=== PATIENT | male | born 1960 | race Caucasian/White ===

== ENCOUNTER 2017-07-29 11:46 | Inpatient (IN) | payer MEDICARE ==
[2017-07-29] VITALS (21 sets, daily range): BP systolic 113–201; BP diastolic 81–115; PULSE 69–113; RESP 16–22; O2SAT 88–100
[~2017-07-29] VITALS: Ht 167.6 cm; Wt 69.0 kg
--- NOTE | 2017-07-29 12:02 | ED.REPORT ---
HPI-Chest Pain 40 and Over Date of Service Jul 29, 2017 ED Provider: Giovani Goodwin MD Patient is a 57 year old male who presents to the ED via EMS complaining of left sided chest pain onset this morning. Associated symptoms include nausea, diaphoresis, left shoulder pain and neck pain. He denies shortness of breath or recent hematemesis. The patient reports that last night he was having neck pain that continued into the morning. He then started experiencing what he thought was heart burn but as the day progressed it continued to increase in pain. Patient rates the pain as an 8/10. Per EMS, the patient was given nitro en route , which did not improve his pain and was also given ASA. He reports that he had a cold two weeks ago and last week had a productive cough. The patient reports that he had a similar episode of pain when he was having episodes of hematemesis a month ago, which he states was related to a hiatal hernia. Nursing Notes Stated Complaint: CHEST PAIN Chief Complaint: Chest Pain Nursing Notes Reviewed: Yes Allergies: Coded Allergies: hydrocodone (Verified Allergy, Intermediate, 07/29/17) hot flashes, feels funny per h&p Scheduled Omeprazole Magnesium (Prilosec Otc) 20 Mg Tablet.dr 20 MG PO DAILY General Time Seen by MD: 11:50 Chief Complaint Chest pain Hx Obtained From: Patient Arrived By: Ambulance Sudden in Onset?: Yes Onset Occurred: 1 - 4 hours ago Symptom Duration: Since onset Location: : Chest left Quality: Painful Radiation: : Neck: Shoulder left Severity: Current: Moderate Similar Sx Previous: Yes Past Medical History Past Medical History none reported Smoking History Never Smoker Social History Drug Use: THC Ambulatory Status Independent Review of Systems Constitutional: Denies: Chills, Fever Respiratory: Denies: Shortness of breath Cardiovascular: Reports: Chest pain GI: Reports: Nausea, Denies: Hematemesis Musculoskeletal: Reports: Extremity pain, Neck pain Skin: Reports Diaphoresis, Denies Itching, Denies Rash Complete sys rev & neg: except as marked. Physical Exam Initial Vital Signs Vital Signs (First) Date Time Temp Pulse Resp B/P Pulse Ox O2 Delivery O2 Flow Rate FiO2 07/29/17 11:54 36.3 113 20 201/115 99 Room Air Initial VS: Reviewed General/Constitutional: Awake, Alert Respiratory / Chest: Atraumatic, Breath sounds NL, Breath sounds = bilat, No respiratory distress Cardiovascular: Heart rate NL, Regular rhythm, Heart sounds NL Abdomen: Atraumatic, Soft, Non-tender Neck: Atraumatic, Supple, No midline vertebral tend Lower Extremity / Pelvis / MS: Atraumatic, No edema Skin: Atraumatic, Color NL, No rash, Warm, Dry Neurologic: Oriented X3, Speech NL Head / Eyes: Atraumatic, Normocephalic, PERRL, EOMI Interpretation & Diagnostics Lab Results Interpretation Result Diagram: 07/29/17 1146 07/29/17 1146 Test 07/29/17 11:46 White Blood Count 16.3th/mm3 (3.8-10.1) Red Blood Count 5.89mil/mm3 (4.40-5.80) Hemoglobin 16.2g/dL (13.8-17.2) Hematocrit 46.8% (41.0-50.0) Mean Corpuscular Volume 79.5fL (81-100) Mean Corpuscular Hemoglobin 27.5pg (27.0-35.0) Mean Corpuscular Hemoglobin Concent 34.6% (32.0-37.0) Red Cell Distribution Width 14.0% (12.3-15.4) Platelet Count 452bil/L (150-400) Neutrophils (%) (Auto) 86.7% (40-74) Lymphocytes (%) (Auto) 9.2% (14-46) Monocytes (%) (Auto) 3.7% (4-12) Eosinophils (%) (Auto) 0.1% (0-5) Basophils (%) (Auto) 0.1% (0-3) Prothrombin Time 10.7sec (8.1-12.5) Prothromb Time International Ratio 1.00ratio D-Dimer < 0.5mg/L FEU (<0.50) Sodium Level 140mEq/L (134-144) Potassium Level 3.5mEq/L (3.5-5.2) Chloride Level 98mEq/L (97-108) Carbon Dioxide Level 21mmol/L (18-29) Blood Urea Nitrogen 15mg/dL (6-24) Creatinine 1.02mg/dL (0.76-1.27) Estimat Glomerular Filtration Rate 80mL/min (>59) Glucose Level 126mg/dL (60-99) Calcium Level 10.1mg/dL (8.5-10.1) Magnesium Level 1.8mg/dL (1.6-2.6) Total Bilirubin 0.7mg/dL (0.0-1.2) Aspartate Amino Transf (AST/SGOT) 30U/L (0-50) Alanine Aminotransferase (ALT/SGPT) 20U/L (0-44) Alkaline Phosphatase 106U/L (25-150) Troponin T 0.120ug/L (0.0-0.011) Pro-B-Type Natriuretic Peptide 50.31pg/mL (0-210) Total Protein 8.0g/dL (6.4-8.4) Albumin 4.5g/dL (3.4-5.0) ECG Interpretation ECG Interpretation: sinus tachycardia, rate 106 ST depression in V2-V4 RBBB questionable elevation in leads 2 and 3, reviewing with cardiology Time: 11:52 Interpreted by: ED physician X-Ray Chest Interpretation Chest Xray Interpretation: IMPRESSION: No acute cardiopulmonary findings. Dictated by: Laurel Kat M.D. on 07/29/2017 at 12:12 Approved by: Laurel Kat M.D. on 07/29/2017 at 12:12 Interpretation / Wet Read by: Interpret - Radiologist CT Abd / Pelvis Interpretation IMPRESSION: No evidence of aortic dissection. Suboptimal opacification of the pulmonary arteries although no gross central filling defect to suggest pulmonary muscle. 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 Recommend clinical correlation as this finding is technically age-indeterminate. If needed, followup with contrast enhanced pelvis CT could be performed. Large hiatal hernia. Multiple areas of enhancement involving the left and right lobes the liver, which are indeterminate. Hepatic hemangiomas are in the differential although technically nonspecific. As clinically warranted, recommend continued surveillance with contrast enhanced CT or ultrasound to exclude early malignancy/metastatic disease. Dictated by: Juanito Avila M.D. on 07/29/2017 at 11:56 Approved by: Juanito Avila M.D. on 07/29/2017 at 12:10 Interpretation / Wet Read by: Interpret - Radiologist Re-Eval/Medical Decision Med Decision/Clinical Course 57-year-old male history of smoking presenting with left-sided chest pain since this morning. EKG initially showed ST depressions in V2 through V4 with questionable elevations in 2 and 3. I reviewed with the on-call naval designer Dr. Staley emergently who reviewed the EKG and thought not STEMI. He requested I consult Dr. Yoon who reviewed the EKG and thought a STEMI. Code STEMI called. Heparin given in addition to aspirin and Plavix. Patient was admitted to the label operator emergently. Time of Eval: 12:51 Re-Evaluation/Progress Note: Discussed results and plan for admit. Patient understands and agrees to plan. All questions were addressed. Consultation #1: Referral / Consult Name: Ginny Redd MD Consulted With: Cardiology Call Returned at: 11:54 Note: Consult with Dr. Belle, who does not think that the EKG looks like a STEMI Consultation #2: Referral / Consult Name: Colt Yoon MD Consulted With: Cardiology Call Returned at: 12:55 Agricultural Systems Specialist: Will see patient, Agrees with eval, Agrees with plan Consultation #3: Referral / Consult Name: Colt Yoon MD Consulted With: Cardiology Call Returned at: 13:07 Agricultural Systems Specialist: Requested label operator Note: Reviewed EKG with Dr. Yoon, who states it is a STEMI and requested emergent label operator Counseled Regarding: Diagnosis, Lab results, Need for admission Discharge & Departure Primary Impression: STEMI (ST elevation myocardial infarction) Involved coronary artery: unspecified coronary artery Qualified Code: I21.3 - ST elevation (STEMI) myocardial infarction of unspecified site Disposition: ADMITTED TO HOSPITAL Discharge Condition All VS Reviewed: Yes Condition: Stable Referrals: NOPCP (PCP) Crit Care Except Billable Proc Time Spent: 30-74 minutes (42) Services Performed: Patient management by me, Time spent at bedside, Reviewing test results, Reviewing imaging, Discussing patient care, Documentation in record Scribe Attestation Portions of this note were transcribed by Angela Llanos. I, Dr. Goodwin personally performed the history, physical exam and medical decision-making; I reviewed and confirmed the accuracy of the information in the transcribed note. Signed by: Maile Lafleur, 07/29/17. Giovani Goodwin MD Jul 29, 2017 12:02 Francia Llanos Jul 29, 2017 12:13
[2017-07-29 12:03] LABS: BASOPHILS % (AUTO) 0.1 % (0-3); EOSINOPHILS % (AUTO) 0.1 % (0-5); MONOCYTES % (AUTO) 3.7 % (4-12); Mean Corpuscular Hemoglobin 27.5 pg (27.0-35.0); Mean Corpuscular Volume 79.5 fL (81-100); NEUTROPHILS % (AUTO) 86.7 % (40-74); Platelet Count 452 bil/L (150-400)
[2017-07-29] MEDS: MeTOProlol 1 mg/mL 5 mL Inj IVPUSH PRN ×4 (12:12→12:49)
--- NOTE | 2017-07-29 12:14 | DRSVH ---
PROCEDURE: X-RAY CHEST ONE VIEW, PORTABLE ([id number]) INDICATIONS: CHEST PAIN TECHNIQUE: One view of the chest was acquired. COMPARISON: None. FINDINGS: Surgical changes and devices: None. Lungs and pleura: No pleural effusions or pneumothorax. Lungs are clear. Mediastinum: Mediastinal contours appear normal. Heart size is normal. Bones and chest wall: No suspicious bony lesions. Overlying soft tissues appear unremarkable. IMPRESSION: No acute cardiopulmonary findings. Dictated by: Laurel Kat M.D. on 07/29/2017 at 12:12 Approved by: Laurel Kat M.D. on 07/29/2017 at 12:12
[2017-07-29] MEDS ORDERED: Ondansetron 2 mg/mL 2 mL Inj ONE (12:15)
[2017-07-29] MEDS ORDERED: Ondansetron 2 mg/mL 2 mL Inj IVPUSH ONE (12:25)
[2017-07-29] MEDS ORDERED: MetoCLOpramide 5 mg/mL 2 mL Inj IVPUSH ONE (12:25)
[2017-07-29 12:43] LABS: Magnesium 1.8 mg/dL (1.6-2.6)
[2017-07-29] MEDS ORDERED: LidocaineVisc 2%:Antacid 1:1 10 mL Syringe PO ONE (12:50)
[2017-07-29 12:55] LABS: TROPONIN T 0.12 ug/L (0.0-0.011)
[2017-07-29] MEDS ORDERED: Heparin 5,000 Unit/mL Inj IVPUSH ONE (13:10)
[2017-07-29 13:12] LABS: D-Dimer < 0.5 mg/L FEU (<0.50)
--- NOTE | 2017-07-29 13:12 | DRSVH ---
PROCEDURE: CT ANG CHEST/ABD W/WO CONTRAST ([id number]) INDICATIONS: r/o PE/dissection TECHNIQUE: Precontrast 5 mm thick sections acquired from the lung apices to the iliac crests. After the adminis tration of intravenous contrast, 3 mm thick sections again acquired from the lung apices to the iliac crests. 3-dimensional maximum intensity projection (MIP) oblique sagittal and coronal reformats wer e then acquired, and/or 3-dimensional volume rendering reformats. For radiation dose reduction, the following was used: automated exposure control. COMPARISON: None. FINDINGS: Image quality: Excellent. AORTA: No evidence of aortic aneurysm or dissection. There are scattered atheromatous calcifications and mild intraluminal thrombus. In the left common iliac artery on image 153 series 5 there is possi ble early penetrating atherosclerotic ulcer although technically age-indeterminate. No periaortic hem orrhage. CHEST: Lungs and pleura: No acute airspace opacities. No pleural effusions or pneumothorax. Central and p eripheral airways are patent and normal in caliber. Mediastinum: Heart size is normal. No pericardial effusion. No mediastinal or hilar adenopathy by size criteria. Central pulmonary arteries are normal in size. Esophagus is normal in caliber. Large hiatal hernia. Bones and chest wall: No axillary adenopathy by size criteria. Thyroid gland contains nonspecific n odule within the left lobe. No suspicious bony lesions. No vertebral body compression fractures. ABDOMEN: Vasculature: Celiac trunk and mesenteric arteries are patent. Renal arteries are also patent. Solid organs: There is a presumed hepatic hemangioma, image 114 series 5 with peripheral nodular enha ncement. Additional nonspecific 5 mm focus of enhancement seen on image 89 series 5 in the left lobe of the liver, too small to characterize definitively. Additional ill-defined enhancement present in t he inferior liver tip image 126 series 5. and spleen are normal in size. Gallbladder unremarkable. Biliary system is non dilated. Pancreas enhances normally. No adrenal nodules. Both kidneys are no rmal in size and enhancement, without hydronephrosis. Peritoneum and bowel: No free fluid or air. Bowel loops are normal in caliber and wall thickness. N ormal appendix Nodes and vessels: No retroperitoneal or mesenteric adenopathy by size criteria. Inferior vena cava is normal in morphology. Bones: No suspicious bony lesions. No vertebral body compression fractures. Miscellaneous: No ventral hernias. IMPRESSION: No evidence of aortic dissection. Suboptimal opacification of the pulmonary arteries although no gross central filling defect to sugges t pulmonary muscle. 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 Recommend clinical co rrelation as this finding is technically age-indeterminate. If needed, followup with contrast enhance d pelvis CT could be performed. Large hiatal hernia. Multiple areas of enhancement involving the left and right lobes the liver, which are indeterminate. Hepatic hemangiomas are in the differential although technically nonspecific. As clinically warranted , recommend continued surveillance with contrast enhanced CT or ultrasound to exclude early malignanc y/metastatic disease. Dictated by: Juanito Avila M.D. on 07/29/2017 at 11:56 Approved by: Juanito Avila M.D. on 07/29/2017 at 12:10
[2017-07-29] MEDS ORDERED: Heparin 1,000 Unit/mL 10 mL Inj ONE (13:13)
[2017-07-29] MEDS ORDERED: Heparin 1,000 Units/500 mL NS Premix IV ONE (13:13)
[2017-07-29] MEDS ORDERED: Heparin 25,000 Unit/500 mL 0.45% NS Premix IV ONE (13:13)
[2017-07-29] MEDS ORDERED: Nitroglycerin 50,000 mcg/250 mL D5W Premix IV ONE (13:13)
[2017-07-29] MEDS ORDERED: Dextrose 5% 250 ML IV ONE (13:13)
[2017-07-29] MEDS ORDERED: NitroPRUSSIDE 25,000 mCg/mL 2 mL Inj IV ONE (13:14)
[2017-07-29] MEDS ORDERED: Heparin 10,000 Unit/1,000 mL NS Premix IV ONE (13:14)
[2017-07-29] MEDS ORDERED: 0.9% Sodium Chloride 1,000 ML ONE (13:14)
[2017-07-29] MEDS ORDERED: Heparin 5,000 Unit/mL Inj SUBQ ONE (13:25)
[2017-07-29] MEDS ORDERED: fentaNYL-PF 50 mCg/mL 2 mL Inj ONE ×2 (13:41→14:04)
[2017-07-29] MEDS ORDERED: Atropine 1 mg/10 mL (Code) Syringe ONE (13:57)
[2017-07-29] MEDS ORDERED: OMEP20TA24 PO (15:20)
[2017-07-29] MEDS ORDERED: Ondansetron 2 mg/mL 2 mL Inj IVPUSH PRN (16:30)
[2017-07-29] MEDS ORDERED: Polyethylene Glycol (PEG) 17 Gm Powder PO PRN (16:30)
--- NOTE | 2017-07-29 17:02 | PCM.HPMED ---
Subjective Date of Service Jul 29, 2017 Primary Provider: Admitting Physician: Primary Care Physician: Bogdan Attending Physician: Colt Yoon MD Admit Status: From the Emergency Department Chief Complaint: chest pain History of Present Illness: Patient is a 57 yr old male with past medical history significant for GERD and hiatal hernia who presents to the ED and planning of left-sided chest pain that radiated to his left shoulder. He states that the pain awoke him from sleep around 5 AM. He described it as a chest tightness, as if someone was sitting on top of his chest. He notes that he was diaphoretic and nauseated. However, he thought that the chest tightness was just associated with his acid reflux or perhaps his neck pain. As a result, he went to the chiropractor, who did some manipulation of his cervical spine. After the chiropractic treatment, the chest pain was not relieved and only progressively got worse and he felt like passing out and was excessively sweaty. Eventually, he called EMS who gave him nitro and ASA en route to the ED, with no relief. Of note, patient mentions that he first experienced symptoms of chest tightness about 1 week ago but the episodes resolve intermittently. He states that he started having a bad "cold "about 2 weeks ago with associated symptoms of cough and congestion. In addition, going through [facility], patient recalls having hematemesis last winter after having 1 beer during a barbecue. He says that he vomited all day after drinking beer and presented to the ED at [facility]. He underwent an EGD at that time and was told that he had a hiatal hernia as well as Cara-Ch tears. He denies any episodes of hematemesis since then. He does not follow-up with GI. In the ED, Vitals signs: Temp 36.3, HR 113, RR 20, BP 201/115, 99% RA. Troponin 0.12. WBC 16.3. CXR was negative. CT Abd/pelvis showed no evidence of Aortic Dissection. EKG was reviewed by Cardiology, Dr. Yoon who states that patient had evidence of STEMI and requested emergent lab analyst. Review of Systems: The comprehensive review of systems was conducted with the patient and found to be negative except as above in the history of present illness. Allergies Coded Allergies: hydrocodone (Verified Allergy, Intermediate, 07/29/17) hot flashes, feels funny per h&p Home Medications Prilosec 20 mg PMH Gastroesophageal Reflux Disease Work related cervical spine injuries Surgical History hemorrhoid surgery, multiple knee surgeries Family History Mother with history of DVT and coronary artery disease Father with history of lung cancer and hypertension Social History Occupation: former worker in logging Hx Alcohol Use: No Hx Substance Use: Yes (Marijuana ) Hx Tobacco Use: No Smoking Status: Never Smoker Exam Vital Signs Vital Sign - Last Date Time Temp Pulse Resp B/P Pulse Ox O2 Delivery O2 Flow Rate FiO2 07/29/17 16:15 16 113/81 100 Nasal Cannula 3.00 07/29/17 14:58 86 07/29/17 13:15 36.9 Exam General: Patient is lying comfortably on bed, AAOX3, not in acute distress, cooperative and pleasant. HEENT: head normocephalic and atraumatic, PERRLA, EOMI, no scleral icterus, noninjected conjunctiva Neck: neck supple, non-tender, no lymphadenopathy, trachea midline, no JVD CV: regular rate and rhythm, s1 and s2 heard, no murmur, radial pulses and pedal pulses 2+ and equal bilaterally, no rubs or gallops, no edema Lungs: Clear to auscultation bilaterally, no wheezes, rales or rhonchi, no increased work of breathing Abdomen: normoactive bowel sounds on 4Q, soft, non-distended, non-tender to palpation, no organomegally, Skin: warm and dry, right groin angiogram site, no evidence of ecchymoses, minimal bleeding with bandage Musculoskeletal: 5/5 UE and LE strength bilaterally, full ROM bilaterally Neuro: Grossly neurologically intact, cranial nerves II through XII intact, no dyskinesia, dysmetria, or dysdiadochokinesia noted, sensation intact in extremities Psych: Normal mood and affect Lab and Diagnostics Labs Laboratory Tests Test 07/29/17 11:46 White Blood Count 16.3th/mm3 (3.8-10.1) Red Blood Count 5.89mil/mm3 (4.40-5.80) Hemoglobin 16.2g/dL (13.8-17.2) Hematocrit 46.8% (41.0-50.0) Mean Corpuscular Volume 79.5fL (81-100) Mean Corpuscular Hemoglobin 27.5pg (27.0-35.0) Mean Corpuscular Hemoglobin Concent 34.6% (32.0-37.0) Red Cell Distribution Width 14.0% (12.3-15.4) Platelet Count 452bil/L (150-400) Neutrophils (%) (Auto) 86.7% (40-74) Lymphocytes (%) (Auto) 9.2% (14-46) Monocytes (%) (Auto) 3.7% (4-12) Eosinophils (%) (Auto) 0.1% (0-5) Basophils (%) (Auto) 0.1% (0-3) Prothrombin Time 10.7sec (8.1-12.5) Prothromb Time International Ratio 1.00ratio D-Dimer < 0.5mg/L FEU (<0.50) Sodium Level 140mEq/L (134-144) Potassium Level 3.5mEq/L (3.5-5.2) Chloride Level 98mEq/L (97-108) Carbon Dioxide Level 21mmol/L (18-29) Blood Urea Nitrogen 15mg/dL (6-24) Creatinine 1.02mg/dL (0.76-1.27) Estimat Glomerular Filtration Rate 80mL/min (>59) Glucose Level 126mg/dL (60-99) Calcium Level 10.1mg/dL (8.5-10.1) Magnesium Level 1.8mg/dL (1.6-2.6) Total Bilirubin 0.7mg/dL (0.0-1.2) Aspartate Amino Transf (AST/SGOT) 30U/L (0-50) Alanine Aminotransferase (ALT/SGPT) 20U/L (0-44) Alkaline Phosphatase 106U/L (25-150) Troponin T 0.120ug/L (0.0-0.011) Pro-B-Type Natriuretic Peptide 50.31pg/mL (0-210) Total Protein 8.0g/dL (6.4-8.4) Albumin 4.5g/dL (3.4-5.0) Result Diagram: 07/29/17 1146 07/29/17 1146 X-Rays, CTs and MRIs PROCEDURE: X-RAY CHEST ONE VIEW, PORTABLE ([id number]) IMPRESSION: No acute cardiopulmonary findings. Dictated by: Laurel Kat M.D. on 07/29/2017 at 12:12 CT CHEST AND ABDOMEN IMPRESSION: No evidence of aortic dissection. Suboptimal opacification of the pulmonary arteries although no gross central filling defect to suggest pulmonary muscle. 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 Recommend clinical correlation as this finding is technically age- indeterminate. If needed, followup with contrast enhanced pelvis CT could be performed. Large hiatal hernia. Multiple areas of enhancement involving the left and right lobes the liver, which are indeterminate. Hepatic hemangiomas are in the differential although technically nonspecific. As clinically warranted, recommend continued surveillance with contrast enhanced CT or ultrasound to exclude early malignancy /metastatic disease. Dictated by: Juanito Avila M.D. on 07/29/2017 at 11:56 12-lead ECG ECG Interpretation: sinus tachycardia, rate 106 ST depression in V2-V4 RBBB questionable elevation in leads 2 and 3, reviewing with cardiology Time: 11:52 Interpreted by: ED physician Assessment & Plan Patient is a 57 yr old male with past medical history significant for GERD and hiatal hernia who presents to the ED and planning of left-sided chest pain that radiated to his left shoulder. In the ED, BP 201/115, Troponin was 0.12 and EKG was reviewed by Cardiology, Dr. Yoon who states that patient had evidence of STEMI and requested emergent lab analyst. ST segment elevation myocardial infarction, present on admission -Patient presented with left sided chest pain. Initial troponin 0.12. -EKG in the ED showed sinus tachycardia, rate 106, ST depression in V2-V4, RBBB and questionable elevation in leads 2 and 3, which was reviewed with cardiology who agreed that it was ST segment elevation -Cardiology, Dr. Yoon was consulted.We appreciate his input -Patient underwent cardiac catheterization -Angioplasty on 2 lesions of the LAD and PCI stent placement in RCA -Per recommendations of cardiology, will start patient on metoprolol 50 mg bid, Lipitor 40 mg daily, Prilosec 40 mg daily and Altace 2.5 mg daily -Tomorrow, will start aspirin 81 mg and Plavix 75 mg daily - ECHO in the am -Follow-up with Cardiology in 1-2 weeks -Suggest Outpatient Cardiac Rehab Leukocytosis, present on admission, under investigation -WBC 16.3, afebrile -Unlikely to be infectious in etiology. 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 As clinically warranted, recommend continued surveillance with contrast enhanced CT or ultrasound to exclude early malignancy /metastatic disease. -Follow-up as outpatient Patient Status: Patient is admitted under inpatient status expected length of stay greater than 2 midnights due to severity of presenting symptoms, risk of adverse events, and complexity of treatment plan. Code Status: Full Code Pain Evaluation: Adequate Pain Control GI Prophylaxis: Proton Pump Inhibitor VTE Prophylaxis: Other (received heparin today ) VTE Mechanical Devices: Intermittant Pneumatic CD Resuscitation Status: CPR: Attempt Resuscitation Attending Statement The patient was seen and examined together with Dr. Parmar on 07/29/2017 and I agree with the history, exam and plan as outlined in the note above. . Kathryn Parmar DO Jul 29, 2017 17:02 Jonathan Lake MD Jul 30, 2017 18:07
[2017-07-29] MEDS: Alum-Mag Hydrox-Simeth 30 mL Suspension PO PRN ×2 (17:29→23:23)
--- NOTE | 2017-07-29 17:32 | NUR ---
Post Cardiac Intervention Recovery in [facility] post angioplasty/ stent without complications. Patient transferred to 2003 after report given to Panda Tinajero RN. Wallet taken to safe, clothing in patient closet and cell phone at the bedside.
[2017-07-29] MEDS ORDERED: Atropine 1 mg/10 mL (Code) Syringe IVPUSH PRN (17:35)
[2017-07-29] MEDS ORDERED: 0.9% Sodium Chloride 250 ML BOLUS IV PRN (17:35)
[2017-07-29] MEDS ORDERED: 0.9% Sodium Chloride 400 ML (4 HRS) IV ONE (17:35)
[2017-07-29] MEDS: Pantoprazole 40 mg ER24 Tablet PO SCH (18:00)
[2017-07-29] MEDS: Ondansetron 2 mg/mL 2 mL Inj IVPUSH PRN ×2 (18:03→22:40)
--- NOTE | 2017-07-29 18:28 | NUR ---
Arrived 1649 - Received report from Antonia Ferraro RN in [facility]. 171 - He arrived from [facility] to [facility] 2003 after getting two Angioplasties to the LAD and a cardiac stent to the RCA. His right groin site was clean, dry, and intact with a small amount of blood on the dressing. No hematoma noted. Right pedal pulse present. Complained of heart burn pain 6/10 in his chest area. Gave him Maalox which helped some. Also, gave him Protonix and Zofran for nausea. 183 - Appears to be sleeping in bed right now. No complaints. Care continues.
[2017-07-30] VITALS (8 sets, daily range): BP systolic 93–135; BP diastolic 51–88; PULSE 64–89; RESP 16–20; O2SAT 97–98
[2017-07-30 03:17] LABS: BASOPHILS % (AUTO) 0.1 % (0-3); EOSINOPHILS % (AUTO) 0.1 % (0-5); MONOCYTES % (AUTO) 8.3 % (4-12); Mean Corpuscular Volume 80.5 fL (81-100); NEUTROPHILS % (AUTO) 76.6 % (40-74); Platelet Count 363 bil/L (150-400)
--- NOTE | 2017-07-30 04:05 | NUR ---
Nursing, NOC shift Right groin site shows no bruising, no hematoma, dressing with dry scant blood. Patient denies pain/discomfort, declined offer of ice pack. Sitting up in bed eating fruit from dinner tray at begin of shift, then had 100cc watery emesis with remnants of fruit. No mucus or blood noted in emesis. PRN Zofran and Maalox given at HS. Patient states "I feel alot better after I threw up." Tolerated ambulating hallway w/ steady gait. Slept off and on thru the NOC. Tele SR 88. CTM for changes.
--- NOTE | 2017-07-30 07:03 | DI95 ---
[address] [address] INTERVENTIONAL CARDIAC CATHETERIZATION PATIENT: SHAE BENITEZ : 1960 MR#: [id number] ADMIT: 07/29/2017 JOB ID: [id number] PROCEDURE: 1. Selective right and left coronary angiography. 2. Percutaneous intervention on the right coronary artery. 3. Plain old balloon angioplasty of the left anterior descending. INDICATION: Acute posterior myocardial infarction. HISTORICAL DETAILS: This patient was brought in from the ER to the clinical laboratory scientist. He had presented with chest pain. There was suspicion of an acute PA. Apparently there was some question about it, and after talking to other physicians, I was subsequently paged and his EKG to me seemed consistent with an acute inferoposterior PA the patient was brought to the clinical laboratory scientist. Hence the delay in his door to balloon time. ANGIOGRAPHIC FINDINGS: 1. Right coronary artery is totally occluded in its mid segment, prior to a large RV branch. RCA has about a 50% lesion in its proximal part as well 2. Left main has mild proximal ectasia. No critical disease. 3. Left anterior descending has proximal ectasia that extends into the ostium of the circumflex as well. In its proximal segment at the takeoff of the first major septal branch there is an 80% lesion. Further down in the mid LAD there is another 70% lesion. 4. Circumflex is nondominant. It is free of any critical stenosis. Proximal ectasia is noted. INTERVENTIONAL REPORT: We then proceeded ahead with an intervention on his RCA. This was balloon angioplastied and then stented with a 3.0 x 23 mm Vision bare metal stent. A bare metal stent was used because of patient's history of severe reflux and GI symptoms and hematemesis about a month ago. We then turned our attention to the LAD given a tight lesion. We balloon angioplastied the proximal as well as the mid LAD. Stenting was deliberately not performed. I would like him to have a GI consultation. If the patient is cleared by GI, I would rather place a drug coated stent in the LAD. Left heart catheterization revealed LVEDP of 20. There was no gradient upon pullback and the LV gram showed no significant mitral regurgitation. LV function was overall preserved barring the basal inferior segment which is moderately hypokinetic. Visually estimated EF is about 55%. In summary, successful placement of a bare metal stent to the RCA. Balloon angioplasty of the LAD, he will be brought back at a subsequent date for placement of a stent to the LAD. ALYSE
[2017-07-30] MEDS: Pantoprazole 40 mg ER24 Tablet PO SCH (07:26)
[2017-07-30] MEDS: Sodium Chloride LOK Flush 10 mL Syringe IVFLUSH PRN ×2 (08:15→15:54)
--- NOTE | 2017-07-30 08:34 | CONS ---
[address] [address] CONSULTATION REPORT PATIENT: SHAE BENTIEZ : 1960 MR#: [id number] ADMIT: 07/29/2017 JOB ID: [id number] DATE OF SERVICE: 07/30/2017 CHIEF COMPLAINT: Chest discomfort. HISTORY OF PRESENT ILLNESS: This gentleman is a poor historian. Apparently, the patient had chest discomfort at around 5 o'clock this morning. He has been having some issues with his neck for which he sees a chiropractor. He decided this morning to see a chiropractor and then subsequently ended up in the emergency department. He has been having off and on chest discomfort since morning. The chest discomfort also made him nauseous and he broke out into a sweat. At the time of interview, the patient was still having mild chest discomfort. He finds it difficult to describe the chest discomfort. He states this is the first time he has ever had this type of discomfort. As mentioned, it woke him up from sleep. He denies any orthopnea or PND. His physical capacity is limited because of neck and back surgeries. He is on disability because of those injuries. He used to be a online merchandiser. PAST MEDICAL HISTORY: Significant mainly for hiatal hernia and GERD. MEDICATIONS AT HOME: Prilosec. ALLERGIES: HYDROCODONE. REVIEW OF SYSTEMS: Comprehensive review of system was done. Pertinent negatives are no strokes, no upcoming surgeries. No bleeding. He has history of hemorrhoids and had surgery about a year ago. He also had hematemesis about a month ago. He states he had had a big meal and had a bottle of beer. He normally does not drink. Following that, he vomited, and he was also retching and had scant amount of blood. PERSONAL HISTORY: Smokes marijuana occasionally. Drinks alcohol occasionally. FAMILY HISTORY: His father had coronary artery disease at a young age. PHYSICAL EXAMINATION: Mildly distressed, middle-aged man. Pulse 80, blood pressure 130/70. Neck is supple. No JVD. Chest: Clear. Heart sounds S1, S2, regular. No murmurs, no gallops. Distal pulses were palpable. MANAGEMENT SUPERVISOR: Alert and oriented. DIAGNOSTIC STUDIES: EKG consistent with an acute inferoposterior ND. ASSESSMENT AND PLAN: This gentleman presented with an acute inferoposterior myocardial infarction. Apparently, there was some delay in the ED. The ED physician had called another instrumentation controls engineer and then I was paged subsequently, and all this delayed the patient's care. Nevertheless, the patient was taken to the company laborer after obtaining informed consent. Initially, the patient was unsure. The procedure and the risks, benefits, and alternatives were explained to the patient and he gave us the consent to proceed ahead. The details of the catheterization are reported elsewhere. Briefly, he had two-vessel disease. The RCA, which was the culprit vessel, was stented. I would like the patient to have a GI consult ( possible due to Cara Ch tear} before embarking upon any intervention on his LAD with drug-eluting stents. The patient will be admitted to the hospitalist service. ADD: The patient states he had an endoscopy appx 2m ago. I will obtain those records from [facility] [place]
--- NOTE | 2017-07-30 11:07 | PCM.PNCARD ---
Subjective Date of service Jul 30, 2017 Chief Complaint Chest pain History of Present Illness This is a 57 year old man, who presented to the ED on 07-29-2017 with c/o chest pain. Significant past medical history; hiatal hernia, saurabh rushing tears and GERD. Apparently, the chest pain started in the AM. He went to his chiropractor for neck pain complaints, and while there, his chest pain persisted, along with dyspnea, and diaphoresis. His chiropractor suggested that these symptoms were worthy of going to the ED for. The patient went to the ED. Intial ECG findings were indicative of an acute inferoposterior GA. A STEMI was called, and the patient was taken to the seed laboratory technician were the angiography demonstrated two vessel disease including a total occlusion of the RCA in its mid segment, and an 80% lesion in the proximal segment of the LAD. The RCA was balloon angioplastied and then stented with a 3.0 x 23 mm Vision bare metal stent. A bare metal stent was used because of patient's history of severe reflux and GI symptoms and hematemesis about a month ago. A Balloon angioplasty was also preformed to the proximal as well as the mid LAD. Stenting was deliberately not performed as a drug coated stent in the LAD is preferred, and GI clearance is required first. The procedures went without complication, and the patient is recovering on the PCU. Subjective: The patient is alert, and laying in bed. The patient states not getting a lot of rest last night, and hoping to be able to tolerate eating today. His breathing is better, and he is able to take a deep breath without the tightness he was feeling yesterday. Additional Information: ROS The patient denies any chest pain, dizziness, headache, instability, vomiting, palpitations, chest pounding, weakness, coughing, shortness of breath. Exam Vital Signs Vital Sign - Last Date Time Temp Pulse Resp B/P Pulse Ox O2 Delivery O2 Flow Rate FiO2 07/30/17 08:39 75 07/30/17 07:26 36.8 18 126/86 97 Room Air 07/29/17 16:41 3.00 Intake and Output 07/29/17 07/29/17 07/30/17 Cumulative From/Thru 15:00 23:00 07:00 07/29/17 11:54 - 07/30/17 05:57 Intake Total 775 ml 600 ml 1375 ml Output Total 400 ml 925 ml 1325 ml Balance 375 ml -325 ml 50 ml Intake Oral 250 ml 600 ml 850 ml IV Total 525 ml 525 ml Output Urine Total 400 ml 800 ml 1200 ml Emesis 125 ml 125 ml # Voids 3 3 # Bowel Movements 0 0 Additional Information: General: No acute distress, well-developed, well-nourished Head: Normocephalic, atraumatic. External ears without defect. Eyes: Pupils equal, round, and reactive to light and accommodation. Anicteric sclerae, moist conjunctivae. Neck: Normal range of motion, no lymphadenopathy noted Cardiovascular: Regular rate and rhythm with no murmurs, rubs, or gallops appreciated. Right groin area is clean,dry, intact. No discharge or drainage. No eccyhmosis. Soft, with mild tenderness to palpation. Pulmonary: Clear to auscultation bilaterally with no crackles, wheezes, or rhonchi. Normal respiratory effort with no use of accessory muscles. Abdomen: Bowel tones present. Soft, nontender, nondistended. Extremities: No clubbing, cyanosis, edema Skin: Normal temperature, turgor, and texture; no rash, ulcers, or subcutaneous nodules appreciated. Neurological: Cranial nerves grossly intact. Reflexes, coordination, and sensory function within normal limits. Normal muscle strength, tone, and bulk. Psychiatric: Alert and oriented to person, place, and time Lab and Diagnostics Result Diagram: 07/30/1724907/30/17249 Assessment & Plan Assessment STEMI; Inferoposterior GA 80% lesion in the proximal segment of the LAD CAD Problems: Plan STEMI; Inferoposterior GA - S/P stent to RCA 07-29-17 - Continue ASA 81 mg Q day - Continue Plavix 75mg Q day - Continue Lisinopril 10 mg Q day - Continue Metoprolol 50mg BID 80% lesion in the proximal segment of the LAD - Plan for drug coated stent as outpatient. - Obtain GI clearance. CAD - Continue Lipitor 40mg Q day . Pain Evaluation: Adequate Pain Control GI Prophylaxis: Proton Pump Inhibitor VTE Prophylaxis: Other (received heparin today ) VTE Mechanical Devices: Intermittant Pneumatic CD Resuscitation Status: CPR: Attempt Resuscitation Time spent 37 mintues. This patient was seen and discussed with Dr. Yoon Attending Statement I spoke wiht Dr Walker, he will do an endoscopy to r/o any active UGI issues before subjecting thepaiteint to bed bug exterminator DAPT Tiara Fowler Jul 30, 2017 11:07 Colt Yoon MD Jul 31, 2017 11:58
--- NOTE | 2017-07-30 11:37 | NUR ---
Social Work: Initial Assessment/Multidisciplinary rounds D: Per EMR review, pt is a 57 year old male admitted for STEMI. Pt is Medicare with no supplement, LTC or VA Benefits- information for SHIBA provided as pt is under-insured. PCP is Raphael Gaytan MD. NOK is Jai jose alberto Walls, friend, . Advanced directives not completed- information provided. Readmit score not entered at this time. Pt discussed in Multidisciplinary rounds. Capacity for self care discussed; no concerns or needs at this time. GLUING MACHINE OFFBEARER met with the patient at bedside. Social work/dcp role explained, contact information and discharge planning checklist provided. See initial assessment. Pt lives in a small single story home with 1 step to enter in [place]. Pt is I with ambulation, uses no DME and is I with self-care and ADLS. Patient has never had HH or skilled rehab. Patient anticipates discharge home once medically stable and states that he will likely have friends come to pick him up. Patient is receptive to d/c planning if needs arise but anticipates discharge home. A: Pt who is I at baseline. P: Evolving; Anticipate pt to discharge home via POV once medically stable; GLUING MACHINE OFFBEARER to continue to follow to assess for unmet needs. ALBERTA Pike Addendum: 07/30/17 at 1140 by SHAYAN GIAGN SS Amended: Links added.
--- NOTE | 2017-07-30 16:31 | NUR ---
Heart burn teaching and activity According to warehouse supervisor 3rd shift report, pt. experienced unpleasant heart burn during the night. Educated pt. on food and beverages to avoid to prevent heart burn. Also encouraged to eat small meals and sit upright after meals. Pt. verbalized understanding. No C/O nausea and vomiting this shift. P. denied chest pain. He C/O activity related R. groin "sore". R. groin CDI, soft to touch. Pt. is independent with ambulation and ADLs.
--- NOTE | 2017-07-30 16:49 | DRSVH ---
[facility] [address] [place] [address] Echocardiogram Report Name: SHAE BENITEZ RStudy Date: 07/30/2017 Height: 66 in Hospital Exam Location: [facility] Weight: 15 4 lb Gender: Other BSA: 1.8 m2 : 1960 Age: 57 yrs BP: 126/86 mmHg Reason For Study: POST STEMI Ordering Physician: Performed By: Joan Morrow [facility] Interpretation Summary The left ventricular cavity is small. Left ventricular wall thickness is mildly increased. The ejection fraction is estimated to be 55-60%. There is basal inferior wall severe hypokinesis. There is no significant valvular heart disease. Procedure: A two-dimensional transthoracic echocardiogram with color flow and Doppler was performed. The study quality was technically adequate. There is no prior echocardiogram noted for this patient. The patient was in normal sinus rhythm during the exam. Left Ventricle: The left ventricular cavity is small. Left ventricular wall thickness is mildly increased. The ejection fraction is estimated to be 55- 60%. There is basal inferior wall severe hypokinesis. Assessment of diastolic parameters indicates a relaxation abnormality of the left ventricle, consistent with normal filling pressures. Right Ventricle: The right ventricle is normal in size and function. Atria: The left atrial size is normal. The right atrium is mildly dilated. There is no Doppler evidence for an interatrial shunt. Mitral Valve: The mitral valve is normal in structure and function. There is trace mitral regurgitation. Aortic Valve: The aortic valve is normal in structure and function. No aortic regurgitation is present. Tricuspid Valve: The tricuspid valve is normal in structure and function. There is trace tricuspid regurgitation. Pulmonary artery pressures cannot be estimated because of the lack of a measurable TR jet velocity. Pulmonic Valve: The pulmonic valve is not well seen, but is grossly normal. Great Vessels: The aortic root is normal size. The ascending aorta is at the upper limits of normal in size. The aortic arch is normal in size. The IVC is of normal diameter and collapses greater than 50% with a sniff. This suggests a low right atrial pressure of 3 mm Hg. Pericardium/ Pleura There is no pericardial effusion. There is no pleural effusion. MMode/2D Measurements & Calculations LVIDd: 3.9 cm RA long axis LVOT diam: 2.0 cm LVIDs: 2.7 cm LA A2 area: 14.3 cm AoV Opening FS: 29.7 % LA A4 area: 17.0 cm RA area EPSS: 0.48 cm LA length (vol) Ao root diam IVSd: 1.3 cm : 18.5 cm LVPWd: 1.3 cm LA vol: 41.7 ml RA vol Aortic Jxn: 2.6 cm LA vol index : 64.2 ml asc Aorta Diam RA : 35.9 mm2 Ao Arch Diam (Prox IVC diam: 1.7 cm Trans): 2.5 cm LV pratt. diameter/BSA LV sys. diameter/BSA RVD1 (basal) TAPSE: 2.1 cm (cm/m^2): 2.2 (cm/m^2): 1.5 Doppler Measurements & Calculations Ao V2 max MV E max piero MV E/A: 0.89 PA V2 max : 129.6 cm/sec : 60.8 cm/sec Med Peak E' Piero : 60.0 cm/sec Ao max PG MV A max piero PA mean PG : 6.7 mmHg : 68.2 cm/sec E/E' med: 9.7 : 0.80 mmHg Ao mean PG MV P1/2t: 89.7 msec Lat Peak E' Piero PA Accel Time : 0.08 sec LVOT Max Piero E/E' lat: 6.4 : 107.3 cm/sec E/e' average: 8.0 HAROON(I,D): 2.0 cm sev ratio MV dec time MV P1/2t max piero Ao V2 mean LV V1 max PG : 0.31 sec : 87.8 cm/sec MVA(P1/2t): 2.5 cm2 Ao V2 VTI: 26.8 cm LV V1 VTI HAROON(V,D): 2.6 cm2 : 17.0 cm PA V2 mean HAROON indexed to BSA : 42.4 cm/sec (cm^2/m^2): 1.1 Electronically signed by: Colt Yoon on Reading Physician:07/30/2017 04:49 PM
--- NOTE | 2017-07-30 18:02 | PCM.PNMED ---
Subjective Date of Service Jul 30, 2017 Subjective Patient is a 57 yr old male with past medical history significant for GERD and hiatal hernia who presents to the ED and planning of left-sided chest pain that radiated to his left shoulder. In the ED, BP 201/115, Troponin was 0.12 and EKG was reviewed by Cardiology, Dr. Yoon who states that patient had evidence of STEMI and requested emergent coreroom foundry laborer. Today, patient states that he feels great. He has been up and ambulating this morning. He denies visual changes, diaphoresis, chest pain, SOB, nausea, vomiting, abdominal pain, bowel changes and dysuria. He is denying pain from the groin. He notes that last night, he had some mild GERD after eating dinner and had 100 cc of watery emesis with remnants of fruit. There was no blood or mucus. There were no acute events overnight. Exam Vital Signs Vital Sign - Last Date Time Temp Pulse Resp B/P Pulse Ox O2 Delivery O2 Flow Rate FiO2 07/30/17 03:55 37.4 89 16 135/88 98 Room Air 07/29/17 16:41 3.00 Intake and Output 07/29/17 07/29/17 07/30/17 Cumulative From/Thru 15:00 23:00 07:00 07/29/17 11:54 - 07/30/17 05:57 Intake Total 775 ml 600 ml 1375 ml Output Total 400 ml 925 ml 1325 ml Balance 375 ml -325 ml 50 ml Intake Oral 250 ml 600 ml 850 ml IV Total 525 ml 525 ml Output Urine Total 400 ml 800 ml 1200 ml Emesis 125 ml 125 ml # Voids 3 3 # Bowel Movements 0 0 Exam General: Patient sitting comfortably at bedside, AAOX3, not in acute distress, cooperative and pleasant. HEENT: head normocephalic and atraumatic, PERRLA, EOMI, no scleral icterus, noninjected conjunctiva Neck: neck supple, non-tender, no lymphadenopathy, trachea midline, no JVD CV: regular rate and rhythm, s1 and s2 heard, no murmur, radial pulses and pedal pulses 2+ and equal bilaterally, no rubs or gallops, no edema Lungs: Clear to auscultation bilaterally, no wheezes, rales or rhonchi, no increased work of breathing Abdomen: normoactive bowel sounds on 4Q, soft, non-distended, non-tender to palpation, no organomegally, Skin: warm and dry, right groin angiogram site, no evidence of ecchymoses, minimal bleeding with bandage Musculoskeletal: 5/5 UE and LE strength bilaterally, full ROM bilaterally Neuro: Grossly neurologically intact, cranial nerves II through XII intact, no dyskinesia, dysmetria, or dysdiadochokinesia noted, sensation intact in extremities Psych: Normal mood and affect IVs and Medications Medications Reviewed: Medications were reviewed in detail Lab and Diagnostics Result Diagram: 07/30/17 0250 07/30/17 0250 X-Rays, CTs and MRIs PROCEDURE: X-RAY CHEST ONE VIEW, PORTABLE ([id number]) IMPRESSION: No acute cardiopulmonary findings. Dictated by: Laurel Kat M.D. on 07/29/2017 at 12:12 CT CHEST AND ABDOMEN IMPRESSION: No evidence of aortic dissection. Suboptimal opacification of the pulmonary arteries although no gross central filling defect to suggest pulmonary muscle. 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 Recommend clinical correlation as this finding is technically age- indeterminate. If needed, followup with contrast enhanced pelvis CT could be performed. Large hiatal hernia. Multiple areas of enhancement involving the left and right lobes the liver, which are indeterminate. Hepatic hemangiomas are in the differential although technically nonspecific. As clinically warranted, recommend continued surveillance with contrast enhanced CT or ultrasound to exclude early malignancy /metastatic disease. Dictated by: Juanito Avila M.D. on 07/29/2017 at 11:56 12-lead ECG ECG Interpretation: sinus tachycardia, rate 106 ST depression in V2-V4 RBBB questionable elevation in leads 2 and 3, reviewing with cardiology Time: 11:52 Interpreted by: ED physician Cardiac Echo Impressions ECHO on 07/30/17 Interpretation Summary The left ventricular cavity is small. Left ventricular wall thickness is mildly increased. The ejection fraction is estimated to be 55-60%. There is basal inferior wall severe hypokinesis. There is no significant valvular heart disease. Assessment & Plan Patient is a 57 yr old male with past medical history significant for GERD and hiatal hernia who presents to the ED and planning of left-sided chest pain that radiated to his left shoulder. In the ED, BP 201/115, Troponin was 0.12 and EKG was reviewed by Cardiology, Dr. Yoon who states that patient had evidence of STEMI and requested emergent coreroom foundry laborer. Patient received a bare metal stent to the RCA and balloon angioplasty of the LAD. we are awaiting [facility] regarding his GI historyand cardiology will decide whether he can get a drug eluding stent to the LAD. ST segment elevation myocardial infarction, present on admission -Patient presented with left sided chest pain. Initial troponin 0.12. -EKG in the ED showed sinus tachycardia, rate 106, ST depression in V2-V4, RBBB and questionable elevation in leads 2 and 3, which was reviewed with cardiology who agreed that it was ST segment elevation -Cardiology, Dr. Yoon was consulted.We appreciate his input -Patient underwent cardiac catheterization -Angioplasty of proximal and mid LAD and PCI bare metal stent placement in RCA -Bare metal stent wa used given patient's GI hx of hematemesis -If the patient is cleared by GI, Dr. oYon would rather place a drug coated stent in the LAD -Per recommendations of cardiology, started patient on metoprolol 50 mg bid, Lipitor 40 mg daily, Prilosec 40 mg daily and Altace 2.5 mg daily -Started aspirin 81 mg and Plavix 75 mg daily - ECHO shows EF 55-60% and basal inferior wall severe hypokinesis -Follow-up with Cardiology in 1-2 weeks -Suggest Outpatient Cardiac Rehab Leukocytosis, present on admission, under investigation -On admit WBC 16.3, afebrile -Unlikely to be infectious in etiology. 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 As clinically warranted, recommend continued surveillance with contrast enhanced CT or ultrasound to exclude early malignancy /metastatic disease. -Follow-up as outpatient Code Status: Full Code Pain Evaluation: Adequate Pain Control GI Prophylaxis: Proton Pump Inhibitor VTE Prophylaxis: Other (on ASA and Plavix ) VTE Mechanical Devices: Intermittant Pneumatic CD Resuscitation Status: CPR: Attempt Resuscitation Attending Statement The patient was seen and examined together with Dr. Parmar on 07/30/2017 and I agree with the history, exam and plan as outlined in the note above. . Kathryn Parmar DO Jul 30, 2017 06:52 Jonathan Lake MD Jul 30, 2017 18:09
[2017-07-31] VITALS (12 sets, daily range): BP systolic 96–136; BP diastolic 65–84; PULSE 61–96; RESP 15–28; O2SAT 95–98
[2017-07-31 02:58] LABS: BASOPHILS % (AUTO) 0.2 % (0-3); EOSINOPHILS % (AUTO) 0.9 % (0-5); MONOCYTES % (AUTO) 7.8 % (4-12); Mean Corpuscular Hemoglobin 27.5 pg (27.0-35.0); Mean Corpuscular Volume 81.9 fL (81-100); NEUTROPHILS % (AUTO) 60.8 % (40-74); Platelet Count 343 bil/L (150-400)
[2017-07-31] MEDS: Alum-Mag Hydrox-Simeth 30 mL Suspension PO PRN (03:49)
[2017-07-31] MEDS: Ondansetron 2 mg/mL 2 mL Inj IVPUSH PRN (04:10)
[2017-07-31] MEDS: Pantoprazole 40 mg ER24 Tablet PO SCH (07:26)
[2017-07-31] MEDS ORDERED: Propofol 10,000 mCg/mL 20 mL Inj ONE (10:22)
[2017-07-31] MEDS ORDERED: Ketamine 10 mg/mL 20 mL Inj ONE (10:22)
[2017-07-31] MEDS ORDERED: Glycopyrrolate 0.2 MG/ML 1mL Inj ONE (10:22)
--- NOTE | 2017-07-31 11:09 | PCM.PNCARD ---
Subjective Date of service Jul 31, 2017 Chief Complaint Chest pain History of Present Illness This is a 57 year old man, who presented to the ED on 07-29-2017 with c/o chest pain. Significant past medical history; hiatal hernia, saurabh rushing tears and GERD. Apparently, the chest pain started in the AM. He went to his chiropractor for neck pain complaints, and while there, his chest pain persisted, along with dyspnea, and diaphoresis. His chiropractor suggested that these symptoms were worthy of going to the ED for. The patient went to the ED. Intial ECG findings were indicative of an acute inferoposterior PR. A STEMI was called, and the patient was taken to the pharmaceutical laboratory technician were the angiography demonstrated two vessel disease including a total occlusion of the RCA in its mid segment, and an 80% lesion in the proximal segment of the LAD. The RCA was balloon angioplastied and then stented with a 3.0 x 23 mm Vision bare metal stent. A bare metal stent was used because of patient's history of severe reflux and GI symptoms and hematemesis about a month ago. A Balloon angioplasty was also preformed to the proximal as well as the mid LAD. Stenting was deliberately not performed as a drug coated stent in the LAD is preferred, and GI clearance is required first. The procedures went without complication, and the patient is recovering on the PCU. Subjective: Pt alert, resting comfortably in bed. No events overnight. Pt reports getting sleep. Had some nausea this morning around 0500, and had relief after zofran admin. Currently NPO. Possible EGD today. Additional Information: ROS The patient denies any chest pain, dizziness, headache, instability, vomiting, palpitations, chest pounding, weakness, coughing, shortness of breath. . Exam Vital Signs Vital Sign - Last Date Time Temp Pulse Resp B/P Pulse Ox O2 Delivery O2 Flow Rate FiO2 07/31/17 10:08 74 07/31/17 07:48 36.6 18 96/65 98 Room Air 07/29/17 16:41 3.00 Intake and Output 07/30/17 07/30/17 07/31/17 Cumulative From/Thru 15:00 23:00 07:00 07/29/17 11:54 - 07/31/17 06:38 Intake Total 920 ml 360 ml 2655 ml Output Total 1325 ml Balance 920 ml 360 ml 1330 ml Intake Oral 920 ml 360 ml 2130 ml IV Total 525 ml Output Urine Total 1200 ml Emesis 125 ml # Voids 3 3 9 # Bowel Movements 0 Additional Information: General: No acute distress, well-developed, well-nourished Head: Normocephalic, atraumatic. External ears without defect. Eyes: Pupils equal, round, and reactive to light and accommodation. Anicteric sclerae, moist conjunctivae. Neck: Normal range of motion, no lymphadenopathy noted Cardiovascular: Regular rate and rhythm with no murmurs, rubs, or gallops appreciated. Right groin area is clean,dry, intact. No discharge or drainage. No eccyhmosis. Soft, with no tenderness to palpation. Pulmonary: Clear to auscultation bilaterally with no crackles, wheezes, or rhonchi. Normal respiratory effort with no use of accessory muscles. Abdomen: Bowel tones present. Soft, nontender, nondistended. Extremities: No clubbing, cyanosis, edema Skin: Normal temperature, turgor, and texture; no rash, ulcers, or subcutaneous nodules appreciated. Neurological: Cranial nerves grossly intact. Reflexes, coordination, and sensory function within normal limits. Normal muscle strength, tone, and bulk. Psychiatric: Alert and oriented to person, place, and time Lab and Diagnostics Result Diagram: 07/31/1722907/31/17229 Assessment & Plan Assessment STEMI; Inferoposterior PR 80% lesion in the proximal segment of the LAD CAD Problems: Plan - Keep NPO. - EGD hopefully today. - If GI clearance, will plan for angiogram with PCI for today or tomorrow. Pain Evaluation: Adequate Pain Control GI Prophylaxis: Proton Pump Inhibitor VTE Prophylaxis: Other (on ASA and Plavix ) VTE Mechanical Devices: Intermittant Pneumatic CD Resuscitation Status: CPR: Attempt Resuscitation Time spent 28 minutes. This patient seen and discussed with Dr. Yoon Attending Statement Agree with the plan. Tiara Fowler Jul 31, 2017 11:09 Colt Yoon MD Jul 31, 2017 12:04
--- NOTE | 2017-07-31 15:03 | PCM.PNMED ---
Subjective Date of Service Jul 31, 2017 Subjective Patient is a 57 yr old male with past medical history significant for GERD and hiatal hernia who presents to the ED and planning of left-sided chest pain that radiated to his left shoulder. In the ED, BP 201/115, Troponin was 0.12 and EKG was reviewed by Cardiology, Dr. Yoon who states that patient had evidence of STEMI and requested emergent paving and surfacing labourer. Patient received a bare metal stent to the RCA and balloon angioplasty of the LAD. Today, patient feels well overall. He was seen ambulating the halls. He denies visual changes, chest pain, SOB, vomiting, abdominal pain, bowel changes and dysuria. Patient reported some nausea this morning which was relieved by Zofran. There were no acute events overnight. Patient is currently npo because he will likely undergo an EGD this evening, followed by stent placement on the LAD, likely tomorrow. Exam Vital Signs Vital Sign - Last Date Time Temp Pulse Resp B/P Pulse Ox O2 Delivery O2 Flow Rate FiO2 07/31/17 03:23 36.5 78 18 112/66 97 07/30/17 23:34 Room Air 07/29/17 16:41 3.00 Intake and Output 07/30/17 07/30/17 07/31/17 Cumulative From/Thru 15:00 23:00 07:00 07/29/17 11:54 - 07/31/17 02:28 Intake Total 920 ml 2295 ml Output Total 1325 ml Balance 920 ml 970 ml Intake Oral 920 ml 1770 ml IV Total 525 ml Output Urine Total 1200 ml Emesis 125 ml # Voids 3 6 # Bowel Movements 0 Exam General: Patient sitting comfortably at bedside, AAOX3, not in acute distress, cooperative and pleasant. HEENT: head normocephalic and atraumatic, PERRLA, EOMI, no scleral icterus, noninjected conjunctiva Neck: neck supple, non-tender, no lymphadenopathy, trachea midline, no JVD CV: regular rate and rhythm, s1 and s2 heard, no murmur, radial pulses and pedal pulses 2+ and equal bilaterally, no rubs or gallops, no edema Lungs: Clear to auscultation bilaterally, no wheezes, rales or rhonchi, no increased work of breathing Abdomen: normoactive bowel sounds on 4Q, soft, non-distended, non-tender to palpation, no organomegally, Skin: warm and dry, right groin angiogram site, no evidence of ecchymoses, minimal bleeding with bandage Musculoskeletal: 5/5 UE and LE strength bilaterally, full ROM bilaterally Neuro: Grossly neurologically intact, cranial nerves II through XII intact, no dyskinesia, dysmetria, or dysdiadochokinesia noted, sensation intact in extremities Psych: Normal mood and affect IVs and Medications Medications Reviewed: Medications were reviewed in detail Lab and Diagnostics Result Diagram: 07/31/17 02307/31/17 023 X-Rays, CTs and MRIs PROCEDURE: X-RAY CHEST ONE VIEW, PORTABLE ([id number]) IMPRESSION: No acute cardiopulmonary findings. Dictated by: Laurel Kat M.D. on 07/29/2017 at 12:12 CT CHEST AND ABDOMEN IMPRESSION: No evidence of aortic dissection. Suboptimal opacification of the pulmonary arteries although no gross central filling defect to suggest pulmonary muscle. 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 Recommend clinical correlation as this finding is technically age- indeterminate. If needed, followup with contrast enhanced pelvis CT could be performed. Large hiatal hernia. Multiple areas of enhancement involving the left and right lobes the liver, which are indeterminate. Hepatic hemangiomas are in the differential although technically nonspecific. As clinically warranted, recommend continued surveillance with contrast enhanced CT or ultrasound to exclude early malignancy /metastatic disease. Dictated by: Juanito Avila M.D. on 07/29/2017 at 11:56 12-lead ECG ECG Interpretation: sinus tachycardia, rate 106 ST depression in V2-V4 RBBB questionable elevation in leads 2 and 3, reviewing with cardiology Time: 11:52 Interpreted by: ED physician Cardiac Echo Impressions ECHO on 07/30/17 Interpretation Summary The left ventricular cavity is small. Left ventricular wall thickness is mildly increased. The ejection fraction is estimated to be 55-60%. There is basal inferior wall severe hypokinesis. There is no significant valvular heart disease. Assessment & Plan Patient is a 57 yr old male with past medical history significant for GERD and hiatal hernia who presents to the ED and planning of left-sided chest pain that radiated to his left shoulder. In the ED, BP 201/115, Troponin was 0.12 and EKG was reviewed by Cardiology, Dr. Yoon who states that patient had evidence of STEMI and requested emergent paving and surfacing labourer. Patient received a bare metal stent to the RCA and balloon angioplasty of the LAD. GI has been consulted and they will perform an EGD this evening. Patient will have another cardiac cath with stent placement in the LAD thereafter, pending EGD results. ST segment elevation myocardial infarction, present on admission -Patient presented with left sided chest pain. Initial troponin 0.12. -EKG in the ED showed sinus tachycardia, rate 106, ST depression in V2-V4, RBBB and questionable elevation in leads 2 and 3, which was reviewed with cardiology who agreed that it was ST segment elevation -Cardiology, Dr. Yoon was consulted.We appreciate his input -Patient underwent cardiac catheterization -Angioplasty of proximal and mid LAD and PCI bare metal stent placement in RCA -Bare metal stent wa used given patient's GI hx of hematemesis -If the patient is cleared by GI, Dr. Yoon would rather place a drug coated stent in the LAD, likely tomorrow -Per recommendations of cardiology, started patient on metoprolol 50 mg bid, Lipitor 40 mg daily, Prilosec 40 mg daily and Altace 2.5 mg daily -Started aspirin 81 mg and Plavix 75 mg daily - ECHO shows EF 55-60% and basal inferior wall severe hypokinesis -Follow-up with Cardiology in 1-2 weeks -Suggest Outpatient Cardiac Rehab Leukocytosis, present on admission, under investigation -On admit WBC 16.3, afebrile -Unlikely to be infectious in etiology. -Likely secondary to acute stress reaction -Will continue to monitor CBC Gastroesophageal reflux disease -Give Prilosec 40 mg daily History of hiatal hernia and Cara-Ch Tears, present on admission, ongoing -CT of Abdomen shows Large hiatal hernia -Patient denies any recent episodes of hematemesis -He states that he had an EGD done at [facility] but does not follow a GI specialist out patient -EGD results from [place] show evidence of hiatal hernia but no active bleeding -GI was consulted and they will do an EGD this evening Coronary Artery Disease -Lipid Panel: Total Cholesterol-214, Lipid-151 -Continue Lipitor 40 mg daily -Hgb A1C 5.6 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 As clinically warranted, recommend continued surveillance with contrast enhanced CT or ultrasound to exclude early malignancy /metastatic disease. -Follow-up as outpatient Code Status: Full Code Pain Evaluation: Adequate Pain Control GI Prophylaxis: Proton Pump Inhibitor VTE Prophylaxis: Other (on ASA and Plavix ) VTE Mechanical Devices: Intermittant Pneumatic CD Resuscitation Status: CPR: Attempt Resuscitation Attending Statement The patient was seen and examined together with Dr. Parmar on 07/31/2017 and I agree with the history, exam and plan as outlined in the note above. . Kathryn Parmar DO Jul 31, 2017 06:30 Jonathan Lake MD Aug 02, 2017 07:46
--- NOTE | 2017-07-31 18:19 | NUR ---
Off unit Patient off unit for EGD. Report given to ISABELLA Escudero. Patient A&Ox3, VSS, denies pain/discomfort.
[2017-07-31] MEDS ORDERED: Lactated Ringer's 1,000 ML IV ONE (18:32)
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
--- NOTE | 2017-07-31 19:06 | PCM.ENDEGD ---
EGD Date of Service: Jul 31, 2017 Physician Jonathan Lake MD Pre Procedure Diagnosis: Hematemesis and PA 48 hours ago Post Procedure Dx & Findings: Esophagitis with either esophageal superficial ulcers, hiatal hernia with Eric's superficial ulcers, gastritis with gastropathy with erosions and superficial ulcers in the body and the antrum. Procedure Esophagogastroduodenoscopy PROCEDURE IN DETAIL: After proper sedation, Olympus video endoscope was inserted into patient's mouth and esophagus was successfully intubated. Scope introduced esophagus. Esophagus showed normal shiny whitish mucosa consistent with squamous cell component. Z line was not at 40 cm from the incisors. Irregularity noted as well as superficial linear ulcer as well as breaks in the Z line with possible healing versus Lagunas's esophagus. Hiatal hernia 4 cm noted. Couple of small 1 cm and less superficial ulcers noted. Scope further events into the stomach. The body of the stomach showed isolated irritated folds and on the surface of these isolated irritated reddish mucosa, superficial erosions were noted. Antrum also showed linear redness irritation consistent with gastropathy as well as mild deformity with swelling and on the swelling there was a 6-7 mm superficial ulcers.. Cardia fundus body antrum pylorus were all visualized. Retroflexion was done. Stomach was easily inflated and deflatable using air. Scope further events to the distal duodenum. Duodenum revealed normal villous structures with normal appearing folds without any mass ulcer erosion. Impression Esophagitis with either esophageal superficial ulcers hiatal hernia with Eric's superficial ulcers, gastritis with gastropathy with erosions and superficial ulcer. Most likely cause of hematemesis. I did not obtain biopsies because multiple biopsies will need to be done and if he ends up getting anticoagulated for catheterization, it could be a potential problem. Of course any anticoagulation including aspirin and Plavix can increase the risk of bleeding Recommendation IV Protonix and will switch him to by mouth Protonix as an outpatient. Would like to repeat the EGD in 3 months. This is to obtain multiple biopsies. Obtain H. pylori antibody test and if is positive please treat. Cardiology requested EGD only therefore formal consult not done. Presedation Assessment Risks and Benefits Informed consent was obtained from the patient after all risks and benefits including but not limited to drug reaction, infection, pain, bleeding, perforation, as well as alternatives were discussed. Patient monitoring Continuous pulse oximetry, cardiac monitoring, blood pressure monitoring, IV access, and oxygen at 2L per nasal cannula. Complications There were no periprocedural complications identified. Post Procedure Plan Post Procedure Recommendations 1. Restrict activities today. 2. Resume normal activities in the morning. 3. Resume medications. 4. GERD behavioral modification: - Avoid fatty, acidic, spicy, large meals - Do not lie down after meals - Do not eat or drink anything for at least 2 1/2 hours before going to bed at night - Discontinue tobacco and alcohol - Decrease or avoid caffeine - Avoid chocolate and mints - Decrease weight - Avoid aspirin and non steroidal anti-inflammatory agents (NSAID) such as Aleve, Advil, Mobic, Naproxen, Ibuprofen, etc 5. Add proton pump inhibitor. Take 30 minutes before 1st meal of the day. 6. Patient informed of normal post procedure side effects as bloating, drowsiness, blood streaking in the stool 7. If gastric biopsy reveal H.pylori, continue with appropriate treatment 8. If small bowel biopsy reveals celiac, continue with appropriate treatment 9. Please don't hesitate to call me with any questions Ramon Walker MD Jul 31, 2017 19:06
--- NOTE | 2017-08-01 00:52 | NUR ---
Groin/EGD/NPO Returned from ENDO, slight anesthetic residual effect, Groin site CDI, minimal discharge, A&O x3 using call light appropriately, NPO for label coder in Morning,Room Air, Saline locked , VS at Base for Pt. Tele, SR [phone]
[2017-08-01 02:12] LABS: BASOPHILS % (AUTO) 0.3 % (0-3); EOSINOPHILS % (AUTO) 1.5 % (0-5); MONOCYTES % (AUTO) 6.9 % (4-12); Mean Corpuscular Hemoglobin 27.7 pg (27.0-35.0); Mean Corpuscular Volume 81.5 fL (81-100); NEUTROPHILS % (AUTO) 61.1 % (40-74); Platelet Count 295 bil/L (150-400)
[2017-08-01 03:30] VITALS: BP 100/63; PULSE 69; RESP 15; O2SAT 98
[2017-08-01 05:32] VITALS: PULSE 70
[2017-08-01 08:00] VITALS: PULSE 57
[2017-08-01 08:30] VITALS: BP 120/75; PULSE 59; RESP 16; O2SAT 96
[2017-08-01] MEDS: Pantoprazole 40 mg ER24 Tablet PO SCH (08:46)
--- NOTE | 2017-08-01 08:50 | NUR ---
Groin/Ambulation Pt OOB walking unit. Groin CDI, no pain on palp. Pt asking about time of Ceo Na. Cardio informed and aware. Waiting for Cath time from Cardio. Care continues.
--- NOTE | 2017-08-01 10:11 | PCM.DIMED ---
Kathryn Parmar DO 08/01/17 0938: Discharge Instructions Date of Service Aug 01, 2017 Dates of Hospitalization Jul 29, 2017 at 17:17 Discharge Diagnosis Discharge Diagnosis ST segment elevation myocardial infarction s/p bare-metal stent placement and balloon angioplasty Leukocytosis, resolved Gastroesophageal reflux disease Esophagitis with esophageal superficial ulcers Hiatal hernia with Eric's superficial ulcers, Gastritis with gastropathy with erosions and superficial ulcer. 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 We did an EKG and lab work which showed that you were having a heart attack. As a result, you were taken emergently to the cardiac catheterization lab. As we discussed, application support technician, Dr. Yoon found some heart arteries that were clogged. He tried to open one of the clogged arteries by using a balloon. He also placed a bare-metal stent in another clogged artery. You were started on aspirin 81 mg and Plavix 75 mg daily. The recommendation is to take the aspirin indefinitely and the Plavix for at least 1 month. In addition, you were started on other medications to help protect the heart: metoprolol 50 mg twice a day, Lisinopril 10 mg daily, and Lipitor ( cholesterol medication) 40 mg daily. Please take these as instructed. Cardiology also suggests that you do outpatient Cardiac Rehab. You will follow- up with Cardiology in 2 weeks. As we discussed, Dr. Yoon would like to place another stent on the artery that he opened up with the balloon. We are also going to send you home with sublingual nitroglycerin. When you begin to feel an attack of angina starting (chest pains, tightness or squeezing in the chest), sit down. Then place a sublingual powder or tablet in your mouth or under your tongue. Nitroglycerin sublingual tablets usually give relief in 1 to 5 minutes. However, if the pain is not relieved, you may use a second tablet 5 minutes after you take the first tablet. If the pain continues for another 5 minutes, a third tablet may be used. If you still have chest pain after a total of 3 tablets, contact your doctor or go to a hospital emergency room right away. Do not drive yourself and call 911, if necessary. Moreover, during your hospital stay, fish hatchery inspector, Dr. Walker did an endoscopy and found evidence of Esophagitis (inflammation of the esophagus) with superficial ulcers, a hiatal hernia with ulcers, and gastritis ( inflammation of the stomach) with erosions and superficial ulcer. We have ordered a blood test to see if you have a bacteria that is causing your ulcers. If so, we will need to treat you with antibiotics. This will be followed up by your primary care doctor. Dr. Walker recommends that you take pantoprazole (the acid snap attacher medicine) twice a day in addition to Sucralfate 1 gram , 4 times a day. You will follow-up with Dr. Walker in 1 month and they will likely do a repeat endoscopy. Recommendations for your acid reflux: - Avoid fatty, acidic, spicy, large meals - Do not lie down after meals - Do not eat or drink anything for at least 2 1/2 hours before going to bed at night - Discontinue tobacco and alcohol - Decrease or avoid caffeine - Avoid chocolate and mints - Decrease weight - Avoid Non steroidal anti-inflammatory agents (NSAID) such as Aleve, Advil , Mobic, Naproxen, Ibuprofen, etc Lastly, there were incidental findings on the CT your liver that need to be followed-up by your primary care doctor. Follow-up plan Follow up with cardiology, Dr. Yoon in 2 weeks. Follow-up with gastroenterology, Dr. Walker in 4 weeks. You will follow-up with your new primary care doctor, Dr. Parmar in 1 week. Follow-up Provider: Colt Yoon MD Follow-up with PCP in: 2 weeks Provider: Ramon Walker MD Follow-up in: 4 weeks Additional Information Follow-up with Dr. Parmar, residency clinic in 1 week Jonathan Lake MD 08/02/17 0749: Discharge Instructions Attending's Statement The patient was seen and examined together with Dr. Parmar on 08/01/2017 and I agree with the history, exam and plan as outlined in the note above. . Kathryn Parmar DO Aug 01, 2017 09:38 Jonathan Lake MD Aug 02, 2017 07:49
--- NOTE | 2017-08-01 11:20 | PCM.PNCARD ---
Subjective Date of service Aug 01, 2017 Chief Complaint Chest pain History of Present Illness This is a 57 year old man, who presented to the ED on 07-29-2017 with c/o chest pain. Significant past medical history; hiatal hernia, saurabh rushing tears and GERD. Apparently, the chest pain started in the AM. He went to his chiropractor for neck pain complaints, and while there, his chest pain persisted, along with dyspnea, and diaphoresis. His chiropractor suggested that these symptoms were worthy of going to the ED for. The patient went to the ED. Intial ECG findings were indicative of an acute inferoposterior NJ. A STEMI was called, and the patient was taken to the produce laborer were the angiography demonstrated two vessel disease including a total occlusion of the RCA in its mid segment, and an 80% lesion in the proximal segment of the LAD. The RCA was balloon angioplastied and then stented with a 3.0 x 23 mm Vision bare metal stent. A bare metal stent was used because of patient's history of severe reflux and GI symptoms and hematemesis about a month ago. A Balloon angioplasty was also preformed to the proximal as well as the mid LAD. Stenting was deliberately not performed as a drug coated stent in the LAD is preferred, and GI clearance is required first. The procedures went without complication, and the patient is recovering on the PCU. EGD was performed on 07-31-2017 to evaluate the patients reported hematemesis. Findings of EGD were; esophagitis with ulcers, gastritis with ulcers, and a hiatal hernia with ulcers. Recommendations from GI are for the patient to take Protonix as an outpatient for 3 months, and then have another EGD. Subjective: The patient is alert, laying in bed, on the telephone. In no signs of distress. Pt reports sleeping ok, and tolerating his diet. Additional Information: ROS Pt denies any of the following; headache, dizziness, vision changes, lightheadedness, jaw pain, neck pain, arm pain, palpitations, racing heart, chest pain, chest tightness, numbness, weakness, shortness of breath, cough, nausea, vomiting. . Exam Vital Signs Vital Sign - Last Date Time Temp Pulse Resp B/P Pulse Ox O2 Delivery O2 Flow Rate FiO2 08/01/17 08:30 36.7 59 16 120/75 96 Room Air 07/29/17 16:41 3.00 Intake and Output 07/31/17 07/31/17 08/01/17 Cumulative From/Thru 15:00 23:00 07:00 07/29/17 11:54 - 08/01/17 06:23 Intake Total 650 ml 200 ml 3505 ml Output Total 1325 ml Balance 650 ml 200 ml 2180 ml Intake Oral 400 ml 200 ml 2730 ml IV Total 250 ml 775 ml Output Urine Total 1200 ml Emesis 125 ml # Voids 2 2 13 # Bowel Movements 0 Additional Information: General: No acute distress, well-developed, well-nourished Head: Normocephalic, atraumatic. External ears without defect. Eyes: Pupils equal, round, and reactive to light and accommodation. Anicteric sclerae, moist conjunctivae. Neck: Normal range of motion, no lymphadenopathy noted Cardiovascular: Regular rate and rhythm with no murmurs, rubs, or gallops appreciated. Right groin area is clean,dry, intact. No discharge or drainage. No eccyhmosis. Soft, with no tenderness to palpation. Pulmonary: Clear to auscultation bilaterally with no crackles, wheezes, or rhonchi. Normal respiratory effort with no use of accessory muscles. Abdomen: Bowel tones present. Soft, nontender, nondistended. Extremities: No clubbing, cyanosis, edema Skin: Normal temperature, turgor, and texture; no rash, ulcers, or subcutaneous nodules appreciated. Neurological: Cranial nerves grossly intact. Reflexes, coordination, and sensory function within normal limits. Normal muscle strength, tone, and bulk. Psychiatric: Alert and oriented to person, place, and time Lab and Diagnostics Result Diagram: 08/01/1715108/01/17 015 Assessment & Plan Assessment STEMI; Inferoposterior NJ 80% lesion in the proximal segment of the LAD CAD . Problems: Plan - The patient is going home today. - Upon results of EGD, we will wait for further stenting of LAD with drug coated stent. The patient is to take protonix as outpatient, and follow up with GI for another EGD in 3 months. Stenting and further management pending follow up EGD findings. - ASA 81 mg Q day, indefinitely - Plavix 75mg daily, for at least 1 month. - Metoprolol 50mg BID - Altace 2.5 mg daily - Lipitor 40 mg daily. - Outpatient cardiac rehab - Follow up with cardiology in 2 weeks. - Have discussed with the patient; -That if he has any chest pain, that he is to come back to the hospital. -If he has any shortness of breath of fatigue with exertion or any activity, to rest. -To take nitro, SL, for chest pain as directed -Call the office right away if any symptoms or problems arise. -No smoking. . Pain Evaluation: Adequate Pain Control GI Prophylaxis: Proton Pump Inhibitor VTE Prophylaxis: Other (on ASA and Plavix ) VTE Mechanical Devices: Intermittant Pneumatic CD Resuscitation Status: CPR: Attempt Resuscitation Time spent 37 minutes. The patient was examined and discussed with Dr. Yoon. Attending Statement I spoke wit Dr Walker, will check H. Pyori antibodies ( t/t id positive) and repeat EGD in 1m. If healing is complete will stent LAD with VALERIE. Tiara Fowler Aug 01, 2017 11:20 Colt Yoon MD Aug 01, 2017 13:22
[2017-08-01] MEDS ORDERED: LISI-610 PO (11:27)
[2017-08-01] MEDS ORDERED: METO50TA3 PO (11:27)
[2017-08-01] MEDS ORDERED: PANT40TA3 PO (11:27)
[2017-08-01] MEDS ORDERED: SUCR1TAB PO (11:27)
[2017-08-01] MEDS ORDERED: ATOR40TA69 PO (11:27)
[2017-08-01] MEDS ORDERED: CLOP75TA28 PO (11:27)
[2017-08-01] MEDS ORDERED: ASPI81TA3 PO (11:27)
[2017-08-01] MEDS ORDERED: NITR0.4T SL (11:27)
[2017-08-01 11:47] VITALS: BP 111/71; PULSE 57; RESP 16; O2SAT 98
--- NOTE | 2017-08-01 12:00 | NUR ---
Social Work: Discharge/Multidisciplinary Rounds D: Pt discussed in mulitidiscplinary rounds; Pt is medically stable for discharge home. Capacity for self-care addressed; no concerns or needs identified. COP BREAKER met with the patient briefly at bedside to review discharge plan and assess for unmet needs. Patient states that he agrees with the plan to d/c home and states that he will arrange for a ride. The patient understands he will need to follow up with Follow up with cardiology,in 2 weeks, gastroenterology in 4 weeks and his new PCP Dr. Parmar in 1 week. PCP appointment has been made by the community cultural development officer and is included in discharge ppw. Bedside RN will review discharge ppw and medications. Pt identifies no concerns about this plan. EMR reviewed and no social work needs identified. A: Pt who is I at baseline. P: Pt to discharge home via POV and no further sw needs. ALBERTA Pike
--- NOTE | 2017-08-01 15:41 | NUR ---
Discharge Pt left wit stepdaughter at approximately 1530. Pt given educational booklet for Angioblasty/Stent placement, all new prescriptions listed in DC signature page printed out and included in discharge packet. Pt bilateral IV's DC'd with catheters intact. Booklet for stent, closure device and ID's cards included in packet. Pt's belongings from safe, and personal belongings all went home with patient. Pt escorted by SCABBLER to front door.
--- NOTE | 2017-08-01 16:12 | PCM.DC.MED ---
Discharge Summary Date of Service Aug 01, 2017 Dates of Hospitalization Date of Hospital Admission Jul 29, 2017 at 17:17 Date of Discharge: Aug 01, 2017 Providers: Admitting Physician: Jonathan Lake MD Primary Care Physician: Nopcp Attending Physician: Jonathan Lake MD Diagnosis at Time of Discharge Diagnosis at Time of Discharge ST segment elevation myocardial infarction s/p bare-metal stent placement and balloon angioplasty Leukocytosis, resolved Gastroesophageal reflux disease Esophagitis with esophageal superficial ulcers Hiatal hernia with Eric's superficial ulcers, Gastritis with gastropathy with erosions and superficial ulcer. 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 Yoon Gastroenterology, Dr. Walker Procedures XRay, CTs & MRIs PROCEDURE: X-RAY CHEST ONE VIEW, PORTABLE ([id number]) IMPRESSION: No acute cardiopulmonary findings. Dictated by: Laurel Kat M.D. on 07/29/2017 at 12:12 CT CHEST AND ABDOMEN IMPRESSION: No evidence of aortic dissection. Suboptimal opacification of the pulmonary arteries although no gross central filling defect to suggest pulmonary muscle. 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 Recommend clinical correlation as this finding is technically age- indeterminate. If needed, followup with contrast enhanced pelvis CT could be performed. Large hiatal hernia. Multiple areas of enhancement involving the left and right lobes the liver, which are indeterminate. Hepatic hemangiomas are in the differential although technically nonspecific. As clinically warranted, recommend continued surveillance with contrast enhanced CT or ultrasound to exclude early malignancy /metastatic disease. Dictated by: Juanito Avila M.D. on 07/29/2017 at 11:56 ECG 12 Lead ECG Interpretation: sinus tachycardia, rate 106 ST depression in V2-V4 RBBB questionable elevation in leads 2 and 3, reviewing with cardiology Time: 11:52 Interpreted by: ED physician Cardiac Echo Impression ECHO on 07/30/17 Interpretation Summary The left ventricular cavity is small. Left ventricular wall thickness is mildly increased. The ejection fraction is estimated to be 55-60%. There is basal inferior wall severe hypokinesis. There is no significant valvular heart disease. Other Diagnostics EGD on 07/31/17 Impression Esophagitis with either esophageal superficial ulcers hiatal hernia with Eric's superficial ulcers, gastritis with gastropathy with erosions and superficial ulcer. Most likely cause of hematemesis. I did not obtain biopsies because multiple biopsies will need to be done and if he ends up getting anticoagulated for catheterization, it could be a potential problem. Of course any anticoagulation including aspirin and Plavix can increase the risk of bleeding Recommendation IV Protonix and will switch him to by mouth Protonix as an outpatient. Would like to repeat the EGD in 3 months. This is to obtain multiple biopsies. Obtain H. pylori antibody test and if is positive please treat. Brief History Patient is a 57 yr old male with past medical history significant for GERD and hiatal hernia who presents to the ED and planning of left-sided chest pain that radiated to his left shoulder. He states that the pain awoke him from sleep around 5 AM. He described it as a chest tightness, as if someone was sitting on top of his chest. He notes that he was diaphoretic and nauseated. However, he thought that the chest tightness was just associated with his acid reflux or perhaps his neck pain. As a result, he went to the chiropractor, who did some manipulation of his cervical spine. After the chiropractic treatment, the chest pain was not relieved and only progressively got worse and he felt like passing out and was excessively sweaty. Eventually, he called EMS who gave him nitro and ASA en route to the ED, with no relief. Of note, patient mentions that he first experienced symptoms of chest tightness about 1 week ago but the episodes resolve intermittently. He states that he started having a bad "cold "about 2 weeks ago with associated symptoms of cough and congestion. In addition, going through [facility], patient recalls having hematemesis last winter after having 1 beer during a barbecue. He says that he vomited all day after drinking beer and presented to the ED at [facility]. He underwent an EGD at that time and was told that he had a hiatal hernia as well as Cara-Ch tears. He denies any episodes of hematemesis since then. He does not follow-up with GI. In the ED, Vitals signs: Temp 36.3, HR 113, RR 20, BP 201/115, 99% RA. Troponin 0.12. WBC 16.3. CXR was negative. CT Abd/pelvis showed no evidence of Aortic Dissection. EKG was reviewed by Cardiology, Dr. Yoon who states that patient had evidence of STEMI and requested emergent pit laborer. Hospital Course Patient is a 57 yr old male with past medical history significant for GERD and hiatal hernia who presents to the ED and planning of left-sided chest pain that radiated to his left shoulder. In the ED, BP 201/115, Troponin was 0.12 and EKG was reviewed by Cardiology, Dr. Yoon who states that patient had evidence of STEMI and requested emergent pit laborer. Patient received a bare metal stent to the RCA and balloon angioplasty of the proximal and mid LAD. Given history of hematemesis, patient underwent EGD with Dr. Walker and was found to have Esophagitis with esophageal superficial ulcers, Hiatal hernia with Eric's superficial ulcers, and Gastritis with gastropathy, erosions and superficial ulcer. He will follow-up with cardiology as an outpatient and will receive a stent to the LAD at a later time. ST segment elevation myocardial infarction, present on admission -Patient presented with left sided chest pain. Initial troponin 0.12. -EKG in the ED showed sinus tachycardia, rate 106, ST depression in V2-V4, RBBB and questionable elevation in leads 2 and 3, which was reviewed with cardiology who agreed that it was ST segment elevation -Cardiology, Dr. Yoon was consulted.We appreciate his input -Patient underwent cardiac catheterization -Angioplasty of proximal and mid LAD and PCI bare metal stent placement in RCA -Bare metal stent was used given patient's GI hx of hematemesis -Per recommendations of cardiology, started patient on metoprolol 50 mg bid, Lipitor 40 mg daily, Prilosec 40 mg daily and Lisinopril 10 mg daily. Will continue upon discharge -Started aspirin 81 mg and Plavix 75 mg daily - ECHO shows EF 55-60% and basal inferior wall severe hypokinesis -Follow-up with Cardiology in 1-[address] Yoon recommends a stent to the LAD, which will be done at a later time as an outpatient given patient's gastric ulcers and esophagitis. -Suggest Outpatient Cardiac Rehab Leukocytosis, present on admission, under investigation -On admit WBC 16.3, afebrile -Unlikely to be infectious in etiology. -Likely secondary to acute stress reaction -CBC improved to 10.9 upon discharge Gastroesophageal reflux disease -Give Prilosec 40 mg bid daily History of hiatal hernia and Cara-Ch Tears, present on admission, ongoing -CT of Abdomen shows Large hiatal hernia -Patient denies any recent episodes of hematemesis -He states that he had an EGD done at [facility] but does not follow a GI specialist out patient -EGD results from [place] show evidence of hiatal hernia but no active bleeding -GI was consulted and EGD revealed Esophagitis with esophageal superficial ulcers, Hiatal hernia with Eric's superficial ulcers, Gastritis with gastropathy, erosions and superficial ulcer. -Patient will follow up gastroenterology, Dr. Walker as an outpatient. Will likely get repeat EGD. -Ordered H. Pylori Ab panel. Results will be followed up by PCP. 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 As clinically warranted, recommend continued surveillance with contrast enhanced CT or ultrasound to exclude early malignancy /metastatic disease. -Follow-up as outpatient Code Status: Full Code Exam Vital Signs (Last) Date Time Temp Pulse Resp B/P Pulse Ox O2 Delivery O2 Flow Rate FiO2 08/01/17 11:47 36.6 57 16 111/71 98 Room Air 07/29/17 16:41 3.00 Exam General: Patient sitting comfortably at bedside, AAOX3, not in acute distress, cooperative and pleasant. HEENT: head normocephalic and atraumatic, PERRLA, EOMI, no scleral icterus, noninjected conjunctiva Neck: neck supple, non-tender, no lymphadenopathy, trachea midline, no JVD CV: regular rate and rhythm, s1 and s2 heard, no murmur, radial pulses and pedal pulses 2+ and equal bilaterally, no rubs or gallops, no edema Lungs: Clear to auscultation bilaterally, no wheezes, rales or rhonchi, no increased work of breathing Abdomen: normoactive bowel sounds on 4Q, soft, non-distended, non-tender to palpation, no organomegally, Skin: warm and dry, right groin angiogram site, no evidence of ecchymoses, minimal bleeding with bandage Musculoskeletal: 5/5 UE and LE strength bilaterally, full ROM bilaterally Neuro: Grossly neurologically intact, cranial nerves II through XII intact, no dyskinesia, dysmetria, or dysdiadochokinesia noted, sensation intact in extremities Psych: Normal mood and affect Test 07/29/17 11:46 07/30/17 02:50 08/01/17 01:52 Prothrombin Time 10.7sec (8.1-12.5) Prothromb Time International Ratio 1.00ratio D-Dimer < 0.5mg/L FEU (<0.50) Magnesium Level 1.8mg/dL (1.6-2.6) Troponin T 0.120ug/L (0.0-0.011) Pro-B-Type Natriuretic Peptide 50.31pg/mL (0-210) Hemoglobin A1c 5.6% (4.8-5.6) Triglycerides Level 70mg/dL (0-149) Cholesterol Level 214mg/dL (100-199) LDL Cholesterol, Calculated 151.000mg/dL (0-99) VLDL Cholesterol 14.000mg/dL HDL Cholesterol 49mg/dL (>39) Cholesterol/HDL Ratio 4.37 (0.0-4.4) Procalcitonin 0.04ng/mL (0.00-0.08) White Blood Count 10.9th/mm3 (3.8-10.1) Red Blood Count 5.09mil/mm3 (4.40-5.80) Hemoglobin 14.1g/dL (13.8-17.2) Hematocrit 41.5% (41.0-50.0) Mean Corpuscular Volume 81.5fL (81-100) Mean Corpuscular Hemoglobin 27.7pg (27.0-35.0) Mean Corpuscular Hemoglobin Concent 34.0% (32.0-37.0) Red Cell Distribution Width 14.1% (12.3-15.4) Platelet Count 295bil/L (150-400) Neutrophils (%) (Auto) 61.1% (40-74) Lymphocytes (%) (Auto) 29.8% (14-46) Monocytes (%) (Auto) 6.9% (4-12) Eosinophils (%) (Auto) 1.5% (0-5) Basophils (%) (Auto) 0.3% (0-3) Sodium Level 140mEq/L (134-144) Potassium Level 4.3mEq/L (3.5-5.2) Chloride Level 103mEq/L (97-108) Carbon Dioxide Level 23mmol/L (18-29) Blood Urea Nitrogen 18mg/dL (6-24) Creatinine 0.86mg/dL (0.76-1.27) Estimat Glomerular Filtration Rate 97mL/min (>59) Glucose Level 106mg/dL (60-99) Calcium Level 9.2mg/dL (8.5-10.1) Total Bilirubin 0.6mg/dL (0.0-1.2) Aspartate Amino Transf (AST/SGOT) 56U/L (0-50) Alanine Aminotransferase (ALT/SGPT) 34U/L (0-44) Alkaline Phosphatase 81U/L (25-150) Total Protein 6.1g/dL (6.4-8.4) Albumin 3.8g/dL (3.4-5.0) Discharge Medications Discharge Medications Aspirin Chew (Aspirin Chew) 81 Mg Chew 81 MG PO DAILY Prescribed by: Lashon MAHAJAN Atorvastatin Calcium (Atorvastatin Calcium) 40 Mg Tablet 40 MG PO HS Prescribed by: Lashon MAHAJAN Clopidogrel (Clopidogrel) 75 Mg Tablet 75 MG PO DAILY Prescribed by: Lashon MAHAJAN Lisinopril (Zestril) 10 Mg Tablet 10 MG PO DAILY Prescribed by: Lashon MAHAJAN Metoprolol Tartrate (Metoprolol Tartrate) 50 Mg Tablet 50 MG PO BID Prescribed by: Lashon MAHAJAN Pantoprazole DR (Pantoprazole DR) 40 Mg Tablet.dr 40 MG PO DAILYAC Prescribed by: Lashon MAHAJAN Sucralfate (Sucralfate) 1 Gm Tablet 1 GM PO QID Prescribed by: Lashon MAHAJAN As needed Nitroglycerin SL (Nitrostat) 0.4 Mg Tab.subl 0.4 MG SL Q5MIN PRN PRN For Chest Pain IF SBP > 90 Prescribed by: ALEXIA N CELERIAN, D Followup Plan Disposition: Patient is in stable condition and will discharge to home Follow-up plan Follow up with cardiology, Dr. Yoon in 2 weeks. Follow-up with gastroenterology, Dr. Walker in 4 weeks. You will follow-up with your new primary care doctor, Dr. Parmar in 1 week. Discharge Diet: Heart Healthy Discharge Activity: Other (Do not lift anything over 10 lbs for at least 4 days ) Patient Instructions You came into the hospital because you were very sweaty, having chest pain that radiated to your arm and neck. We did an EKG and lab work which showed that you were having a heart attack. As a result, you were taken emergently to the cardiac catheterization lab. As we discussed, jet operator, Dr. Yoon found some heart arteries that were clogged. He tried to open one of the clogged arteries by using a balloon. He also placed a bare-metal stent in another clogged artery. You were started on aspirin 81 mg and Plavix 75 mg daily. The recommendation is to take the aspirin indefinitely and the Plavix for at least 1 month. In addition, you were started on other medications to help protect the heart: metoprolol 50 mg twice a day, Lisinopril 10 mg daily, and Lipitor ( cholesterol medication) 40 mg daily. Please take these as instructed. Cardiology also suggests that you do outpatient Cardiac Rehab. You will follow- up with Cardiology in 2 weeks. As we discussed, Dr. Yoon would like to place another stent on the artery that he opened up with the balloon. We are also going to send you home with sublingual nitroglycerin. When you begin to feel an attack of angina starting (chest pains, tightness or squeezing in the chest), sit down. Then place a sublingual powder or tablet in your mouth or under your tongue. Nitroglycerin sublingual tablets usually give relief in 1 to 5 minutes. However, if the pain is not relieved, you may use a second tablet 5 minutes after you take the first tablet. If the pain continues for another 5 minutes, a third tablet may be used. If you still have chest pain after a total of 3 tablets, contact your doctor or go to a hospital emergency room right away. Do not drive yourself and call 911, if necessary. Moreover, during your hospital stay, seed packer, Dr. Walker did an endoscopy and found evidence of Esophagitis (inflammation of the esophagus) with superficial ulcers, a hiatal hernia with ulcers, and gastritis ( inflammation of the stomach) with erosions and superficial ulcer. We have ordered a blood test to see if you have a bacteria that is causing your ulcers. If so, we will need to treat you with antibiotics. This will be followed up by your primary care doctor. Dr. Walker recommends that you take pantoprazole (the acid high school admissions representative medicine) twice a day in addition to Sucralfate 1 gram , 4 times a day. You will follow-up with Dr. Walker in 1 month and they will likely do a repeat endoscopy. Recommendations for your acid reflux: - Avoid fatty, acidic, spicy, large meals - Do not lie down after meals - Do not eat or drink anything for at least 2 1/2 hours before going to bed at night - Discontinue tobacco and alcohol - Decrease or avoid caffeine - Avoid chocolate and mints - Decrease weight - Avoid Non steroidal anti-inflammatory agents (NSAID) such as Aleve, Advil , Mobic, Naproxen, Ibuprofen, etc Lastly, there were incidental findings on the CT your liver that need to be followed-up by your primary care doctor. Follow-up Provider: Colt Yoon MD Follow-up with PCP in: 2 weeks Provider: Ramon Walker MD Follow-up in: 4 weeks Time spent Greater than 30 minutes was spent in preparation of discharge with greater than 50% of that time dedicated to patient counseling and coordination of care. . Attending Statement The patient was seen and examined together with Dr. Parmar on 08/01/2017 and I agree with the history, exam and plan as outlined in the note above. . copies to: Kathryn Parmar DO; Ramon Walker MD; Colt Yoon MD, Alexa N DO Aug 01, 2017 16:12 Jonathan Lake MD Aug 02, 2017 07:50
--- NOTE | 2017-08-05 12:24 | PCM.ANEP1 ---
Post Anesthesia PACU Phase 1 Assessment Date of Service: Jul 31, 2017 (1999) Anesthetic Administered: TIVA Level of Alertness: Awake, talking CASTRO's with Equal Strength: Yes Pain: No Pain Scale Score: 0 Nausea or Vomiting: No CV Function & Hydration Stable: Yes Airway Device: none Oxygen Delivery: Nasal Cannula Lungs: Normal Air Movement PACU Phase 2 Assessment Complications: No Follow up Care: N/A Patient Instructions Provided: N/A Gera Chen MD Aug 05, 2017 12:24
== END 2017-08-01 15:12 | disposition home or self-care (01) | DRG 249 ==
LOC: SED 11:46 → SPI 13:14 → PCC 17:17
PROVIDERS: ADMIT Internal Medicine; ATTEND Internal Medicine
PROC: 02703ZZ Dilation of Coronary Artery, One Artery, Percutaneous Approach (ICD-10-PCS; principal; 2017-07-29)
PROC: 02703DZ Dilation of Coronary Artery, One Artery with Intraluminal Device, Percutaneous Approach (ICD-10-PCS; 2017-07-29)
PROC: 4A023N7 Measurement of Cardiac Sampling and Pressure, Left Heart, Percutaneous Approach (ICD-10-PCS; 2017-07-29)
PROC: B2151ZZ Fluoroscopy of Left Heart using Low Osmolar Contrast (ICD-10-PCS; 2017-07-29)
PROC: B2111ZZ Fluoroscopy of Multiple Coronary Arteries using Low Osmolar Contrast (ICD-10-PCS; 2017-07-29)
PROC: 0DJ08ZZ Inspection of Upper Intestinal Tract, Via Natural or Artificial Opening Endoscopic (ICD-10-PCS; 2017-07-31)
DX: I21.11 ST elevation (STEMI) myocardial infarction involving right coronary artery (principal); K22.10 Ulcer of esophagus without bleeding; K44.9 Diaphragmatic hernia without obstruction or gangrene; K29.00 Acute gastritis without bleeding; I25.10 Atherosclerotic heart disease of native coronary artery without angina pectoris; F12.90 Cannabis use, unspecified, uncomplicated; K21.9 Gastro-esophageal reflux disease without esophagitis